=== PATIENT | male | born 1995 | race Caucasian/White ===

== ENCOUNTER 2023-07-07 18:38 | Emergency (ER) | payer SELFPAY ==
[2023-07-07 18:42] VITALS: BP 141/85; PULSE 78; RESP 14; TEMP 35.9; O2SAT 97; BMI 32.0
--- NOTE | 2023-07-07 19:02 | EX.ED.UPPERE ---
HPI History of Present Illness Chief Complaint: Laceration Narrative Narrative: 27-year-old male, [id number], denies significant past medical history presents with laceration to the dorsum of his left hand that he sustained approximately 3 hours ago. 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 He had completed and was thinking that the cylinder was stopped, when the dorsum of his left hand hit one of the knives, causing an incision on the dorsum of his left hand. He believes his tetanus immunization is within the last 5 years. He denies other injury. He states he was going to go to urgent care, but they do not do sutures there. He did not really think that he needed sutures however. He presents for evaluation. [facility] Medical History Laceration Allergy/AdvReac Type Severity Reaction Status Date / Time No Known Allergies Allergy Verified 07/07/23 18:41 Social History Smoking Status: Unknown if ever smoked ROS ROS ED ROS Narrative Constitutional: No fever, no chills. HEENT: No sore throat. No neck pain. No loss of vision. No rhinorrhea. Cardiovascular: No chest pain. No palpitations. No pedal edema. Respiratory: No cough, no shortness of breath. Abdominal: No abdominal pain. No nausea. No vomiting. Genitourinary: No dysuria. No hematuria. Musculoskeletal: No myalgias. No arthralgias. Neurologic: No headaches. No dizziness. No lightheadedness. Skin: No rash. No change in color. Laceration to dorsum of left hand. Psychiatric: No depression. No anxiety. EXAM Physical Exam Narrative Exam Narrative: Afebrile. Vital signs noted. Nontoxic-appearing. HEENT: Normocephalic. Atraumatic. PERRL, EOMI. Neck soft and supple. No point tenderness or step off. Cardiovascular: Regular rate and rhythm. No murmurs, rubs, or gallops appreciated. Respiratory: No tachypnea. Lungs clear to auscultation bilaterally. Gastrointestinal: Abdomen soft, nontender, with normoactive bowel sounds. No rebound or guarding. Neurological: Awake. Alert. Nonfocal, nonlateralizing. Skin: No rash. Normal color. No pallor. 1.5 cm laceration through the dermis of the left hand on the dorsum at the base of the second digit. No apparent tendon involvement. No active bleeding. Musculoskeletal: No pedal edema. Full range of motion extremities. Full range of motion of index finger, no tendon involvement through range of motion of left index finger. Good capillary refill. Palpable radial pulse. Const Vital Signs: 07/07/23 18:42 Temperature 96.7 F L Temperature Source Temporal Pulse Rate 78 Respiratory Rate 14 Blood Pressure 141/85 H Blood Pressure Mean 103 Pulse Ox 97 Oxygen Delivery Method Room Air MDM MDM MDM Narrative Medical decision making narrative: I do feel that this requires suture closure as the area is gaping. He was told the risk of infection and scarring and acknowledges an understanding. He states he had a blood infection from a cut on his hand in the past, however I do not feel that oral antibiotics are indicated currently. See procedure note for details. A total of 3 simple interrupted sutures using 4 point 0 nylon were used for good wound closure. At this point in time, he will have the sutures removed in 10 days by his primary care provider. He states he does not want to file Workmen's Compensation at this time. He was told to look for signs of infection. He will take [id number] analgesics as needed. Return instructions were reviewed. Disposition is discharged home in stable condition. History & Record Review Discussion w/independent historian: Patient Additional record(s) reviewed:: No prior records Procedures Lacerations Dorsum left hand: Length: 0.59 in Depth: Skin Shape: Linear Prep: Sterile Conditions Laceration repair: Irrigated (Moderately), Lidocaine, Local and Skin sutures Number of Sutures/[place]: 3 Suture Information: Ethilon, 4-0 and 5-0 Discharge Plan Triage Chief Complaint: Laceration ED Provider: Robert Parkinson Dx/Rx/DC Orders Clinical Impression: Abrasion of left hand, Laceration of hand, left Instructions: ED Laceration, Hand: All Closures Primary Care Provider: Kandi Bates Referrals: Kandi Bates MD [Primary Care Provider] - 10 Day for suture removal Activity Restrictions/Additional Instructions: Return with fever, increased redness around wound, drainage of pus from wound, new or worsening symptoms. Disposition Disposition: Home, Self Care
[2023-07-07] MEDS: Lidocaine 1% (20 ml mdv) 20 ML Vial INFILT (19:53)
== END 2023-07-07 20:03 | disposition home or self-care (01) ==
PROVIDERS: Emergency Provider Emergency Medicine; PCP Family Medicine; Visit Provider Emergency Medicine
DX: S61.412A Laceration without foreign body of left hand, initial encounter (principal); X58.XXXA Exposure to other specified factors, initial encounter
CPT/HCPCS: 12001; 99283